=== PATIENT | male | born 1935 | race Hispanic/Latino ===

== ENCOUNTER 2017-08-21 07:58 | Day surgery (SDC) | payer OTHER ==
[~2017-08-21] VITALS: Ht 170.2 cm; Wt 89.5 kg
[~2017-08-21 07:58] MED LIST: ASPI-1197 PO; COGNIUM PO; GLUC-252 PO; LISI-617 PO; METF500T6 PO; METO-391 PO; MULT-40 PO; OMEG-108 PO; PRAV20TA4 PO; PROP10DR2 OP; SODIUM CHLORIDE 0.9% 1000ML 1,000 ML IV ONE; TERA5CAP4 PO; VIT1CAPS47 PO
[2017-08-21 08:46] VITALS: BP 127/61
[2017-08-21] MEDS ORDERED: PROPOFOL 10 MG/ML 20ML VIAL IV ONE ×2 (09:32)
== END 2017-08-21 10:18 | disposition home or self-care (01) ==
LOC: ENDO 07:58 → DAH 07:58 → ENDO 10:18
PROVIDERS: ATTEND Internal Medicine Gastroenterology
DX: D12.0 Benign neoplasm of cecum (principal); K57.30 Diverticulosis of large intestine without perforation or abscess without bleeding; I10 Essential (primary) hypertension; E78.4 Other hyperlipidemia; E11.9 Type 2 diabetes mellitus without complications; I25.10 Atherosclerotic heart disease of native coronary artery without angina pectoris; I71.4 Abdominal aortic aneurysm, without rupture; Z79.899 Other long term (current) drug therapy; Z79.82 Long term (current) use of aspirin; Z95.818 Presence of other cardiac implants and grafts; Z68.30 Body mass index [BMI] 30.0-30.9, adult; D50.9 Iron deficiency anemia, unspecified
CPT/HCPCS: 45380; 82948 ×2; 88305; 93005; A4606; J2704 ×2; J7030

== ENCOUNTER → 2017-10-24 | Outpatient (CLI) | payer OTHER ==
[~2017-10-24] MED LIST changes: -SODIUM CHLORIDE 0.9% 1000ML 1,000 ML IV ONE
== END | disposition home or self-care (01) ==
LOC: SHCH 11:08
PROVIDERS: ATTEND Internal Medicine Cardiovascular Disease
DX: I25.10 Atherosclerotic heart disease of native coronary artery without angina pectoris (principal)
CPT/HCPCS: 93306

== ENCOUNTER → 2017-10-26 | Outpatient (CLI) | payer OTHER | END | disposition home or self-care (01) | LOC: OIH 07:53 | PROVIDERS: ATTEND Internal Medicine Cardiovascular Disease | DX: I73.9 Peripheral vascular disease, unspecified (principal); I71.4 Abdominal aortic aneurysm, without rupture | CPT/HCPCS: 93925; 93978 ==

== ENCOUNTER → 2019-01-02 | Outpatient (CLI) | payer OTHER ==
[~2019-01-02] MED LIST changes: +IOHEXOL-350 50ML VIAL IV ONE; +IOHEXOL-350 75 ML VIAL IV ONE; +METF-444 PO; -METF500T6 PO
== END | disposition home or self-care (01) ==
LOC: RAH 07:28
PROVIDERS: ATTEND Internal Medicine Cardiovascular Disease
DX: I70.291 Other atherosclerosis of native arteries of extremities, right leg (principal); K57.30 Diverticulosis of large intestine without perforation or abscess without bleeding; I51.7 Cardiomegaly; I70.8 Atherosclerosis of other arteries
CPT/HCPCS: 75635; Q9967 ×2

== ENCOUNTER 2019-05-09 05:30 | Day surgery (SDC) | payer OTHER ==
[2019-05-07 09:49] VITALS: BP 114/58
[2019-05-07 09:53] LABS: APPEARANCE,URINE Clear (CLEAR); BILIRUBIN,URINE Negative (NEGATIVE); COLOR,URINE Yellow (YELLOW); GLUCOSE, URINE (UA) Negative (NEGATIVE); KETONES,URINE Negative (NEGATIVE); LEUKOCYTE ESTERASE ,URINE Negative (NEGATIVE); NITRATE,URINE Negative (NEGATIVE); OCCULT BLOOD,URINE Negative (NEGATIVE); PROTEIN,URINE Negative (NEGATIVE); UROBILINOGEN,URINE 0.2 mg/dL (0.2-1.0)
[2019-05-07 10:02] LABS: CREATININE 1.2 mg/dL (0.5-1.5); POTASSIUM 4.7 mmol/L (3.5-5.1)
[2019-05-07 10:05] LABS: INR 1.1 (0.85-1.15); PARTIAL THROMBOPLASTIN TIME 28.7 SEC (26.3-35.5); PROTHROMBIN TIME 11.5 SEC (9.6-11.6)
[2019-05-07 10:22] LABS: BASOPHILS % (AUTO) 0.3 % (0.0-5.0); EOSINOPHILS % (AUTO) 1.3 % (0.0-8.0); HEMATOCRIT 36.8 % (42-54); MEAN CORPUSCULAR HEMOGLOBIN 29.1 pg (27.0-33.0); MEAN CORPUSCULAR HGB CONC 33.4 g/dL (32.0-36.0); MEAN CORPUSCULAR VOLUME 87.2 fL (79-99); MONOCYTES % (AUTO) 6.5 % (3.0-13.0); NEUTROPHILS % (AUTO) 68.9 % (40.0-77.0); PLATELET COUNT (AUTO) 145 K/uL (130-400); RED BLOOD CELL COUNT(AUTO) 4.22 MIL/uL (4.50-6.20); RED CELL DISTRIBUTION WIDTH 14.6 % (11.0-15.5)
[2019-05-09] VITALS (26 sets, daily range): BP systolic 123–157; BP diastolic 56–73
[~2019-05-09] VITALS: Ht 172.7 cm; Wt 90.1 kg
[~2019-05-09 05:30] MED LIST changes: +CILO100T PO; -COGNIUM PO; +FERS325 PO; -IOHEXOL-350 50ML VIAL IV ONE; -IOHEXOL-350 75 ML VIAL IV ONE; +LATA7.5D OU; -LISI-617 PO; +SODIUM CHLORIDE 0.9% 500ML 500 ML IV SCH; +[UNRECOGNIZED DRUG - OTHER] PO
[2019-05-09] MEDS ORDERED: SODIUM CHLORIDE 0.9% 1000ML 1,000 ML IV ONE (06:10)
[2019-05-09] MEDS ORDERED: HEPARIN SODIUM 1000UNIT/ML 10ML VIAL ONE (07:27)
[2019-05-09] MEDS ORDERED: SODIUM BICARB 50MEQ 50ML VIAL ONE (07:27)
[2019-05-09] MEDS ORDERED: IODIXANOL 320 MG/ML 100 ML VIAL ONE ×2 (07:28→07:31)
[2019-05-09] MEDS ORDERED: LIDOCAINE HCL 2% 20ML ONE (07:28)
[2019-05-09] MEDS ORDERED: NITROGLYCERIN 5 MG/ML 10 ML VIAL IV ONE (07:28)
[2019-05-09] MEDS ORDERED: MIDAZOLAM HCL 1 MG/ML 2ML VIAL ONE ×2 (07:55→08:18)
[2019-05-09] MEDS ORDERED: MEPERIDINE-PF 25 MG/ML SYG ONE ×2 (07:55→08:18)
[2019-05-09] MEDS ORDERED: CLOPIDOGREL BISULFATE 300 MG TAB ONE (09:06)
[2019-05-09] MEDS ORDERED: ASPIRIN 81MG TAB.CHEW ONE (09:06)
[2019-05-09] MEDS ORDERED: SODIUM CHLORIDE 0.9% 1000ML 1,000 ML IV SCH (09:18)
[2019-05-09] MEDS ORDERED: DEXTROSE 50%-WATER 50 ML DISP.SYRIN IV PRN (09:30)
[2019-05-09] MEDS ORDERED: GLUCAGON 1MG KIT 1 MG ML IM PRN (09:30)
--- NOTE | 2019-05-09 10:06 | NUR ---
PTT. DRAWN WAITING ON RESULT TO PULL SHEATH.
--- NOTE | 2019-05-09 10:35 | NUR ---
PTT IS AT 61, PER DR. LAGOS ITS OK TO PULL SHEATH. ABLE TECH WILL REMOVE SHEATH
[2019-05-09] MEDS ORDERED: ATROPINE SULFATE 0.1 MG/ML 10 ML SYG IVP ONE (11:00)
[2019-05-09] MEDS ORDERED: INSULIN HUMULIN R 100 UNIT/ML 3ML SQ SCH (11:30)
--- NOTE | 2019-05-09 14:00 | NUR ---
REPORT GIVEN TO TORSTEN MALIN RN AT BEDSIDE PT IS RESTING COMFORTABLY, NO COMPILATIONS, NO HEMATOMA, NO BLEEDING DRESSING DRY AND INTACT. DP BILATERAL PRESENT.
[2019-05-09] MEDS ORDERED: ACETAMINOPHEN-CODEINE 300/30MG TAB ONE (16:42)
== END 2019-05-09 18:10 | disposition home or self-care (01) ==
LOC: DAH 05:30
PROVIDERS: ATTEND Internal Medicine Cardiovascular Disease
DX: I70.211 Atherosclerosis of native arteries of extremities with intermittent claudication, right leg (principal); I10 Essential (primary) hypertension; I25.10 Atherosclerotic heart disease of native coronary artery without angina pectoris; I25.5 Ischemic cardiomyopathy; Z98.890 Other specified postprocedural states; Z98.62 Peripheral vascular angioplasty status; Z79.84 Long term (current) use of oral hypoglycemic drugs; Z79.899 Other long term (current) drug therapy; Z79.82 Long term (current) use of aspirin; Z87.891 Personal history of nicotine dependence; Z72.89 Other problems related to lifestyle; Z79.01 Long term (current) use of anticoagulants
CPT/HCPCS: 36415 ×2; 37226; 71045; 75710; 80048; 81003; 82948 ×3; 85025; 85347; 85610; 85730 ×2; 93005; A4215; A4216; A4221; A4222; A4223 ×3; A4606; A4663; C1725; C1769 ×3; C1874; C1887; C1894 ×4; J1644 ×2; J1815; J2175 ×2; J2250 ×2; J3490 ×3; J7030; Q9967 ×2; 99156; 99157; J0461

== ENCOUNTER → 2019-05-15 | Outpatient (CLI) | payer OTHER ==
[~2019-05-15] MED LIST changes: -SODIUM CHLORIDE 0.9% 500ML 500 ML IV SCH
== END | disposition home or self-care (01) ==
LOC: RAH 13:54
PROVIDERS: ATTEND Internal Medicine Cardiovascular Disease
DX: R60.9 Edema, unspecified (principal)
CPT/HCPCS: 93970

== ENCOUNTER → 2020-09-03 | Outpatient (CLI) | payer OTHER | END | disposition home or self-care (01) | LOC: SHCH 07:46 | PROVIDERS: ATTEND Internal Medicine Cardiovascular Disease | DX: I65.23 Occlusion and stenosis of bilateral carotid arteries (principal); R01.1 Cardiac murmur, unspecified; I71.4 Abdominal aortic aneurysm, without rupture | CPT/HCPCS: 93306; 93356; 93880; 93978 ==

== ENCOUNTER → 2022-02-01 | Outpatient (CLI) | payer OTHER ==
[~2022-02-01] VITALS: Ht 172.7 cm; Wt 85.7 kg
[~2022-02-01] MED LIST changes: +REGADENOSON 0.4 MG/5 ML PF SYG IVP SCH
== END | disposition home or self-care (01) ==
LOC: SHCH 08:52
PROVIDERS: ATTEND Internal Medicine Cardiovascular Disease
DX: R06.02 Shortness of breath (principal); R07.89 Other chest pain; I10 Essential (primary) hypertension
CPT/HCPCS: 78452; 96374; 93017; J2785; A9500 ×2

== ENCOUNTER → 2023-02-02 | Outpatient (CLI) | payer OTHER ==
[~2023-02-02] MED LIST changes: -CILO100T PO; +CILO100T3 PO; -REGADENOSON 0.4 MG/5 ML PF SYG IVP SCH
== END | disposition home or self-care (01) ==
LOC: SHCH 08:04
PROVIDERS: ATTEND Internal Medicine Cardiovascular Disease
DX: I71.40 Abdominal aortic aneurysm, without rupture, unspecified (principal); Z95.828 Presence of other vascular implants and grafts
CPT/HCPCS: 93978

== ENCOUNTER → 2024-02-08 | Outpatient (CLI) | payer OTHER | END | disposition home or self-care (01) | LOC: SHCH 15:39 | PROVIDERS: ATTEND Internal Medicine Cardiovascular Disease | DX: R06.00 Dyspnea, unspecified (principal) | CPT/HCPCS: 93925 ==

== ENCOUNTER → 2024-02-09 | Outpatient (CLI) | payer OTHER ==
[2024-02-09] MEDS: REGADENOSON 0.4 MG/5 ML PF SYG IVP ONE (12:13)
== END | disposition home or self-care (01) ==
LOC: SHCH 08:14
PROVIDERS: ATTEND Internal Medicine Cardiovascular Disease
DX: I25.10 Atherosclerotic heart disease of native coronary artery without angina pectoris (principal)
CPT/HCPCS: 78452; 96374; 93017; J2785; A9500 ×2

== ENCOUNTER 2024-04-01 05:49 | Day surgery (SDC) | payer OTHER ==
[2024-03-28 10:24] LABS: BASOPHILS # (AUTO) 0.01 K/uL (0.00-0.20); BASOPHILS % (AUTO) 0.2 % (0.0-5.0); EOSINOPHILS # (AUTO) 0.09 K/uL (0.00-0.70); HEMATOCRIT 37.7 % (42-54); IMMATURE GRANULOCYTE ABSOLUTE 0.01 K/uL (0-1); LYMPHOCYTES # (AUTO) 0.9 K/uL (1.0-4.8); MEAN CORPUSCULAR HEMOGLOBIN 29.2 pg (27.0-33.0); MEAN CORPUSCULAR HGB CONC 33.2 g/dL (32.0-36.0); MEAN CORPUSCULAR VOLUME 88.1 fL (79-99); MONOCYTES # (AUTO) 0.3 K/uL (0.1-1.0); MONOCYTES % (AUTO) 6.3 % (3.0-13.0); NEUTROPHILS # (AUTO) 3.1 K/uL (1.8-7.7); NEUTROPHILS % (AUTO) 70.3 % (40.0-77.0); PLATELET COUNT (AUTO) 145 K/uL (130-400); RED BLOOD CELL COUNT(AUTO) 4.28 MIL/uL (4.50-6.20); RED CELL DISTRIBUTION WIDTH 13.8 % (11.0-15.5); WHITE BLOOD COUNT (AUTO) 4.4 K/uL (4.8-10.8)
[2024-03-28 10:31] VITALS: BP 143/63; PULSE 60; RESP 17; TEMP 97.1
[2024-03-28 10:32] LABS: CREATININE 1.4 mg/dL (0.5-1.3); POTASSIUM 4.4 mmol/L (3.5-5.1)
[2024-03-28 10:39] LABS: INR 1.11 (0.85-1.15); PROTHROMBIN TIME 11.9 SEC (9.6-11.6)
[2024-03-28 10:41] LABS: B-TYPE NATRIURETIC PEPTIDE 84 pg/mL (0-100); PARTIAL THROMBOPLASTIN TIME 27.8 SEC (26.3-35.5)
[2024-03-28 10:45] LABS: APPEARANCE,URINE CLEAR (CLEAR); BILIRUBIN,URINE NEGATIVE (NEGATIVE); COLOR,URINE YELLOW (YELLOW); GLUCOSE, URINE (UA) NEGATIVE (NEGATIVE); KETONES,URINE NEGATIVE (NEGATIVE); LEUKOCYTE ESTERASE ,URINE NEGATIVE Leu/uL (NEGATIVE); NITRATE,URINE NEGATIVE (NEGATIVE); OCCULT BLOOD,URINE NEGATIVE (NEGATIVE); PROTEIN,URINE NEGATIVE (NEGATIVE); UROBILINOGEN,URINE 0.2 mg/dL (0.2-1.0)
[2024-03-28 10:46] LABS: ADD UA MICROSCOPIC NO
[2024-04-01] VITALS (15 sets, daily range): BP systolic 125–153; BP diastolic 46–83; PULSE 48–77; RESP 16–18; TEMP 97.3–97.9
[~2024-04-01] VITALS: Ht 172.7 cm; Wt 85.8 kg
[~2024-04-01 05:49] MED LIST changes: +CALC-1105 PO; +CYAN50009 PO; +GABA300C PO; +GLIP5TAB15 PO; +HYDR-4068 PO; +LORA10TA7 PO; +MAGN400T53 PO; -PROP10DR2 OP; -[UNRECOGNIZED DRUG - OTHER] PO; +coq10 PO; +prevagen PO
[2024-04-01] MEDS: 0.9%NACL 1000ML 1,000 ML IV ONE (07:03)
[2024-04-01] MEDS ORDERED: LIDOCAINE HCL 400MG/20ML VIAL ONE (07:04)
[2024-04-01] MEDS ORDERED: HEParin 10,000 UNIT/10ML (1,000 UNIT/ML) VIAL ONE (07:04)
[2024-04-01] MEDS ORDERED: SODIUM BICARB 50MEQ 50ML VIAL 50 ML ONE (07:04)
[2024-04-01] MEDS ORDERED: NITROGLYCERIN 50MG VIAL ONE (07:05)
[2024-04-01] MEDS ORDERED: HEParin-NS 1,000 UNIT/500 ML 1,000 ML IV ONE (07:05)
[2024-04-01] MEDS ORDERED: IOHEXOL 350 MG/ML 100ML INFUS..BTL IV ONE (07:05)
[2024-04-01] MEDS ORDERED: MEPERIDINE-PF 25 MG/ML SYG ONE (07:28)
[2024-04-01] MEDS ORDERED: MIDAZOLAM HCL 1 MG/ML 2ML VIAL ONE (07:28)
[2024-04-01] MEDS ORDERED: niCARDIpine 25MG INJ IV ONE (07:29)
[2024-04-01] MEDS ORDERED: ATROPINE 1MG SYG IVP ONE (07:46)
[2024-04-01] MEDS: 0.9%NACL 1000ML 1,000 ML IV SCH (08:00)
[2024-04-01] MEDS ORDERED: acetaMINOPHEN WITH coDEINE 1 TAB TAB PO PRN ×2 (08:30)
[2024-04-01] MEDS ORDERED: SACU1TAB PO (09:14)
== END 2024-04-01 12:15 | disposition home or self-care (01) ==
LOC: DAH 05:49
PROVIDERS: ATTEND Internal Medicine Cardiovascular Disease
DX: I25.118 Atherosclerotic heart disease of native coronary artery with other forms of angina pectoris (principal); R93.1 Abnormal findings on diagnostic imaging of heart and coronary circulation; I11.0 Hypertensive heart disease with heart failure; I50.42 Chronic combined systolic (congestive) and diastolic (congestive) heart failure; R07.89 Other chest pain; E78.5 Hyperlipidemia, unspecified; E11.9 Type 2 diabetes mellitus without complications; Z95.5 Presence of coronary angioplasty implant and graft; Z79.82 Long term (current) use of aspirin; Z79.84 Long term (current) use of oral hypoglycemic drugs; Z79.899 Other long term (current) drug therapy
CPT/HCPCS: 80048; 83880; 85025; 85610; 85730; 81003; 36415; 71045; 93005; 93458; 82948 ×2; C1769; A4649; C1894; Q9965; J3490 ×4; J7030; J0461; J1644 ×2; J2250; J2175; Q9967; A4215; A4222; A4221; A4663; A4216; A4606; A4223 ×3; 99156; 99157